=== PATIENT | female | born 1955 | race Caucasian/White ===

== ENCOUNTER 2022-11-26 19:06 | Emergency (ER) | payer OTHER, BC ==
[~2022-11-26] VITALS: Ht 157.5 cm; Wt 58.5 kg
[2022-11-26 19:21] VITALS: BP_SYST 155
[2022-11-26] MEDS ORDERED: DICL50TA9 PO ×2 (20:48)
[2022-11-26] MEDS ORDERED: DICL20GE TP ×2 (20:48)
[2022-11-26 21:20] VITALS: BP_SYST 140
== END 2022-11-26 21:21 | disposition home or self-care (01) ==
LOC: SED 19:06
DX: T18.128A Food in esophagus causing other injury, initial encounter (principal); Z88.0 Allergy status to penicillin; Z79.899 Other long term (current) drug therapy; W45.8XXA Other foreign body or object entering through skin, initial encounter; Y93.89 Activity, other specified; Y92.89 Other specified places as the place of occurrence of the external cause; Y99.8 Other external cause status
CPT/HCPCS: 70360-TC; 99283